=== PATIENT | female | born 1955 | race Hispanic/Latino ===

== ENCOUNTER 2016-10-15 09:49 | Emergency (ER) | payer MEDICARE ==
[2016-10-15 10:03] VITALS: BP 158/77
--- NOTE | 2016-10-15 10:24 | Emergency Department Report ---
Chief Complaint: Pain General Stated Complaint: SWOLLEN FROM NECK DOWN X4 MO'S Time Seen by Provider: 10/15/16 10:18 - HPI History of Present Illness: 61-year-old female comes in for complaint of swelling from neck down to her feet 4 months. Patient denies any pain. She denies any nausea vomiting she denies any chest pain denies any homicidal or suicidal ideation. She denies any hallucinations. Patient does have a past medical history bipolar she is supposed to be on Seroquel 400 mg daily at bedtime but reports she only takes the Seroquel 300 mg daily at bedtime. She is followed by [facility] and her doctor name is Dr. Sheri Dykes, her mental health provider is Dr. Nikolai Arguello. - Exam Vital Signs: Vital Signs 10/15/16 10:01 Temperature 98.7 F Pulse Rate 87 Respiratory 16 Rate Blood Pressure 158/77 O2 Sat by Pulse 97 Oximetry Physical Exam: Patient is alert and oriented neck supple no swelling at bedtime appears to be adipose tissue. Thyroid is not enlarged. Lower extremity wounds she has big legs but no edema noted. MSE screening note: Focused history and physical exam performed. Due to findings the following was ordered: Evaluated by this provider MSE. We will order a CBC BMP. As well as a UA patient be evaluated by the main ER physician's ED Disposition for MSE Condition: Stable
[2016-10-15 11:04] LABS: Hematocrit 35.4 % (30.3-42.9); Hemoglobin 11.9 gm/dl (10.1-14.3); Mean Corpuscular HGB Conc 34 % (30-34); Mean Corpuscular Hemoglobin 30 pg (28-32); Mean Corpuscular Volume 90 fl (79-97); Platelet Count 229 K/mm3 (140-440); Red Blood Count 3.95 M/mm3 (3.65-5.03); Red Cell Distribution Width 13.6 % (13.2-15.2); White Blood Count 5.8 K/mm3 (4.5-11.0)
[2016-10-15 11:22] LABS: Anion Gap 19 mmol/L; Blood Urea Nitrogen 16 mg/dL (7-17); Calcium 9.9 mg/dL (8.4-10.2); Carbon Dioxide 24 mmol/L (22-30); Chloride 101.3 mmol/L (98-107); Glucose 105 mg/dL (65-100); Potassium 4.4 mmol/L (3.6-5.0); Sodium 140 mmol/L (137-145)
--- NOTE | 2016-10-19 13:43 | ED Elopement Review ---
ED Pt Elopement review - Results review Lab results: Laboratory Tests 10/15/16 10/15/16 10:44 10:44 WBC 5.8 RBC 3.95 Hgb 11.9 Hct 35.4 MCV 90 MCH 30 MCHC 34 RDW 13.6 Plt Count 229 Sodium 140 Potassium 4.4 Chloride 101.3 Carbon Dioxide 24 Anion Gap 19 BUN 16 Creatinine 0.8 Estimated GFR > 60 BUN/Creatinine Ratio 20.00 Glucose 105 H Calcium 9.9 - Call Back decision Pt Call Back Decision: No action required
== END 2016-10-15 21:55 | disposition left against medical advice (07) ==
LOC: ED 09:49
DX: R22.1 Localized swelling, mass and lump, neck (principal); Z53.21 Procedure and treatment not carried out due to patient leaving prior to being seen by health care provider
CPT/HCPCS: 36415; 80048; 85027